=== PATIENT | female | born 1950 | race Caucasian/White ===

== ENCOUNTER 2016-05-07 21:19 | Observation (INO) | payer MEDICARE, OTHER ==
[~2016-05-07] VITALS: Ht 172.7 cm; Wt 92.7 kg
[2016-05-07] MEDS ORDERED: IPRATROPIUM 0.5MG/ALBUTEROL 2.5MG INH SOL UD 3ML (DUONEB)(J7620) As Ordered ONE ×2 (21:31→22:36)
[2016-05-07] MEDS ORDERED: NITROGLYCERIN 2% OINT 1 GM *U/D* PKT As Ordered ONE (21:50)
[2016-05-07] MEDS ORDERED: dexameTHASONE 4 MG/ML 1ML VIAL (J1100) As Ordered ONE (21:50)
[2016-05-07] MEDS ORDERED: FUROSEMIDE 20 MG/2 ML VIAL (J1940) As Ordered ONE (21:50)
[2016-05-07] MEDS ORDERED: FUROSEMIDE 40 MG/4 ML VIAL (J1940) As Ordered ONE (21:50)
[2016-05-07 22:01] LABS: BASO # 0.1 K/mm3 (0.0-0.2); BASO % 0.7 % (0.0-1.0); EOS # 1.6 K/mm3 (0.0-0.50); EOS % 14.3 % (0.0-3.0); LARGE UNSTAINED CELL # 0.2 K/mm3 (0.0-0.4); LARGE UNSTAINED CELL % 1.4 % (0.0-4.0); LYMPH # 2.7 K/mm3 (1.5-4.5); LYMPH % 21.8 % (24.0-44.0); MEAN CORPUSCULAR HEMOGLOBIN 29.6 pg (27.0-33.0); MEAN CORPUSCULAR HGB CONC 32.2 g/dl (32.0-36.5); MEAN CORPUSCULAR VOLUME 91.9 fl (80.0-96.0); MONO # 0.5 K/mm3 (0.0-0.8); MONO % 4.5 % (0.0-5.0); NEUTROPHILS # 6.6 K/mm3 (1.8-7.7); NEUTROPHILS % 57.3 % (36.0-66.0); PLATELET COUNT, AUTOMATED 252 k/mm3 (150-450); RED CELL DISTRIBUTION WIDTH 13.3 % (11.5-14.5); WHITE BLOOD COUNT 11.5 K/mm3 (4.0-10.0)
[2016-05-07 22:27] LABS: ANION GAP 9 MEQ/L (8-16); BLOOD UREA NITROGEN 13 MG/DL (7-18); CALCIUM LEVEL 9.3 MG/DL (8.8-10.2); CARBON DIOXIDE LEVEL 27 MEQ/L (21-32); CHLORIDE LEVEL 107 MEQ/L (98-107); CREATININE FOR GFR 0.95 MG/DL (0.55-1.02); GLOMERULAR FILTRATION RATE > 60.0 (>45); GLUCOSE, FASTING 116 MG/DL (80-110); SODIUM LEVEL 143 MEQ/L (136-145)
[2016-05-08] MEDS ORDERED: FLUO20CA8 PO (01:10)
[2016-05-08] MEDS ORDERED: NEXI40CA PO (01:10)
[2016-05-08] MEDS ORDERED: ATOR40TA PO (01:10)
[2016-05-08] MEDS ORDERED: FLUT1SPR2 (01:10)
[2016-05-08] MEDS ORDERED: TRAM50TA2 PO (01:10)
[2016-05-08] MEDS ORDERED: VALS1TAB49 PO (01:10)
[2016-05-08] MEDS ORDERED: TUSSSUS2 PO (01:10)
[2016-05-08] MEDS ORDERED: ACET50TAOT PO (01:10)
[2016-05-08] MEDS ORDERED: VITMTA PO (01:10)
[2016-05-08] MEDS ORDERED: REST0.05 OU (01:10)
[2016-05-08] MEDS ORDERED: ICAP1CAP PO (01:10)
[2016-05-08] MEDS ORDERED: ACETAMINOPHEN TAB 650MG DOSE (2X325MG) PO PRN (01:45)
[2016-05-08] MEDS ORDERED: ALBUTEROL SULFATE 2.5 MG/0.5 ML INH NEB SOLN NEB PRN (01:45)
[2016-05-08] MEDS ORDERED: ONDANSETRON 4MG/2ML VIAL (J2405) IV PRN (01:45)
[2016-05-08] MEDS ORDERED: FLUTICASONE PROP 0.05% NASAL SPRAY 16 GM (FLONASE) PRN (01:45)
[2016-05-08] MEDS ORDERED: LevoFLOXacin IV 750 MG in APPROPRIATE DILUENT 1 EA IV SCH (01:45)
[2016-05-08] MEDS ORDERED: methylPREDNISolone INJ 125 MG/2 ML VIAL (J2930) IV SCH ×2 (01:45→04:00)
[2016-05-08] MEDS ORDERED: traMADol 50 MG TAB PO PRN (01:45)
--- NOTE | 2016-05-08 02:26 | HPEPDOC ---
Medical History and Physical Date of Admission May 08, 2016 at 01:08 History and Physical PRIMARY CARE PROVIDER: Dr. Koroma CHIEF COMPLAINT: Shortness of breath HISTORY OF PRESENT ILLNESS: Patient is a 65-year-old female with past medical history significant for hypertension, dyslipidemia, GERD, anxiety and asthma who presents to emergency department with chief complaint of difficulty breathing. Patient says that she has been having intermittent symptoms for the past week but that now her symptoms are not getting better. She says that this evening she developed a cough and was having a hard time breathing. At times she said she felt like she was going to pass out. She mentions that she was diagnosed with pneumonia last February and was diagnosed with flu approximately a week ago. ALLERGIES: Tape PAST MEDICAL HISTORY: Hypertension, dyslipidemia, GERD, anxiety, asthma PAST SURGICAL HISTORY: Foot surgery 3, C-sections, hysterectomy, oophorectomy SOCIAL HISTORY: Patient drinks alcohol on weekends. She denies any tobacco or recreational drug use. 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 She lives at home with her CODE STATUS: Full code REVIEW OF SYSTEMS: Constitutional: Positive for fever and chills a couple days ago HEENT: Head: Positive for headaches and feelings like she is going to pass out which were new today. Eyes: denies blurry vision, double vision. Ears: denies hearing loss, tinnitus, ear pain. Nose: Positive for sinus pressure bilaterally , denies rhinorrhea or postnasal drip. Throat: Positive for cough which is productive for green/yellow sputum, denies hemoptysis Chest: Positive for feelings of heaviness in her chest Respiratory: Positive for shortness of breath and difficulty breathing Gastrointestinal: Positive for nausea, denies vomiting, diarrhea, constipation, abdominal pain, melena, hematochezia : denies dysuria, hematuria Musculoskeletal: denies muscle / joint stiffness, pain, swelling, lower extremity swelling Neurological: denies numbness, tingling, paresthesias Lymphatics: denies palpable lymph nodes or swollen glands Integumentary: denies any cuts, rashes, bruises Endocrine: denies polyuria, polydipsia. PHYSICAL EXAMINATION: Vitals: Temperature 96.3, pulse 120, respiratory rate 16, blood pressure 105/53 , pulse ox 93% on 4 L nasal cannula General: Patient awake, alert and oriented, verbal and able to answer questions appropriately. She does not appear to be in any acute distress HEENT: Head: normocephalic, atraumatic. Eyes: pupils equally reactive to light , conjunctiva are pink, sclera are nonicteric. Ears: tympanic membranes visible , light reflex present bilaterally without erythema. Throat: buccal mucosa is pink and moist with no lesions in the oropharynx Respiratory: Bilateral rhonchi to auscultation. No wheezes or rales Cardiovascular: tachycardic with regular rhythm, with no murmurs, rubs or gallops. Abdomen: soft, nontender, nondistended, no hepatosplenomegaly appreciated. Bowel sounds present. Extremities: 5/5 strength in upper and lower extremities bilaterally, no swelling in either lower extremity bilaterally Neurological: sensation intact and symmetrical in upper and lower extremities bilaterally Integumentary: skin free from rashes, lesions, abrasions Vascular: pulses palpable and symmetrical in upper and lower extremities bilaterally LABORATORY DATA: CBC: White blood cells 11.5, H&H 14.4/44.7, platelets 252 History: Sodium 143, potassium 4.0, chloride 107, carbon dioxide 27, BUN 13, creatinine 0.95, glucose 116, calcium 9.3 Lactic acid 2.0 Cardiac marker panel: CK-MB 2.2, CK-MB relative index 1.45, troponin <0.02 BNP 12.4 MICROBOIOLOGY: Blood cultures 2 pending ELECTROCARDIOGRAM: Sinus tachycardia at rate of 105 bpm RADIOLOGY: Chest x-ray as interpreted by myself: Negative for infiltrate or effusion ASSESSMENT: Patient is a 65-year-old female with history of asthma who presents with shortness of breath, increased oxygen requirement. Patient will be admitted for further evaluation, breathing treatments and IV antibiotics. PLAN: #1: Shortness of breath: Admit patient to [facility] under care of Dr. Gaol. Orders placed for DuoNeb 3 Bre's inhalation scheduled every 4 hours, albuterol sulfate 2.5 mg every 2 hours when necessary for shortness of breath or wheezing , Levaquin 750 mg IV every 24 hours, Solu-Medrol 60 mg IV every 6 hours. Order placed for respiratory panel. #2: Asthma / Asthmatic Bronchitis: See shortness of breath #3: Dyslipidemia: Order placed for home dose of Lipitor 40 mg by mouth daily at bedtime #4: Anxiety: Order placed for home dose of fluoxetine 20 mg by mouth daily #5: Allergic rhinitis: Order placed for home dose of Flonase 2 sprays in each nostril daily #6: GERD: Order placed for home dose of Protonix 40 mg by mouth daily #7: Hypertension: Order placed for home dose of valsartan 40 mg by mouth daily #8: DVT prophylaxis: Order placed for Lovenox 40 mg subcutaneously daily My preceptor for this patient encounter was physically present in the building during the encounter and was fully available. As needed, all aspects of the patient interview, examination, medical decision making process, and medical care plan development were reviewed and approved by the preceptor. Preceptor is aware and concurs with the plan as stated in the body of this note and will attest to such by his/her cosignature. Attending Note: I have independently examined this patient and all aspects of the exam and treatment decisions have been discussed with the resident. A member of the hospitalist staff will continue to follow this patient through discharge. Vital Signs Temperature 96.3, pulse 120, respiratory rate 16, blood pressure 105/53, pulse ox 93% on 4 L nasal cannula Home Medications Scheduled (Icaps Areds 2) 1 Cap Cap 1 CAP PO DAILY (Restasis) 0.05 % Emu 1 DROP OU BID Atorvastatin Calcium (Atorvastatin Calcium) 40 Mg Tab 40 MG PO QHS Chlorphenir/Hydrocod Polistir (Tussionex Pennkinetic Ext 10-8 mg/5Ml) 1 Preeti Preeti 5 ML PO BID Esomeprazole Magnesium Trihydr (Nexium) 40 Mg Cap 40 MG PO DAILY Fluoxetine Hcl (Fluoxetine) 20 Mg Cap 20 MG PO DAILY Levofloxacin Hemihydrate (Levofloxacin) 500 Mg Tab 500 MG PO DAILY Multivitamins *[facility] STOCKED* (Thera M Plus *[facility] STOCKED*) 1 Tab Tab 1 TAB PO DAILY Prednisone (Prednisone) 10 Mg Tab 10 MG PO DAILY as directed Valsartan (Valsartan) 40 Mg Tab 40 MG PO DAILY Scheduled PRN Acetaminophen (Acetaminophen) 500 Mg Tab 1,000 MG PO Q6H PRN PRN PAIN Albuterol Sulfate (Ventolin Hfa) 200 Puff/8 Gm Aers 2 PUFF INH Q4HP PRN PRN SHORTNESS OF BREATH Fluticasone Propionate (Fluticasone Propionate 0.05%) 120 Alpine/16 Gm Naspr 2 SPRAY NA DAILY PRN PRN NASAL CONGESTION PER NOSTRIL Tramadol HCl (Tramadol HCl) 50 Mg Tab 50 MG PO BID PRN PRN PAIN Allergies Coded Allergies: No Known Drug Allergy (Verified Allergy, Unknown, 05/16/14) FELIX DASILVA DO May 08, 2016 02:26 JAMIE REIS DO May 08, 2016 19:19
[2016-05-08] MEDS: IPRATROPIUM 0.5MG/ALBUTEROL 2.5MG INH SOL UD 3ML (DUONEB)(J7620) NEB SCH ×3 (04:00→11:21)
[2016-05-08] MEDS ORDERED: LevoFLOXacin IV 500 MG in APPROPRIATE DILUENT 1 EA IV SCH (04:00)
--- NOTE | 2016-05-08 05:13 | EDDOCDS ---
Physician Documentation [facility] Name: Amanda Rubin Age: 65 yrs Sex: Female : 1950 Arrival Date: 05/07/2016 Time: 21:19 Bed 18 Private MD: Any Koroma Disposition: 05/08 00:18 Critical Care:. cs11 Disposition: 05/08/16 00:17 Hospitalization ordered by Jimbo Pretty for Inpatient Admission. Preliminary diagnosis is Respiratory failure, unspecified with hypoxia. - Bed requested for M PED. - Status is Inpatient Admission. ld5 - Condition is Stable. - Problem is new. - Symptoms have improved. Historical: - Allergies: no known allergies; - Home Meds: 1. blood pressure med Unknown Unknown daily 2. "reflux medication". Unknown Unknown daily 3. Prozac 20 mg Oral cap 1 cap once daily 4. Eye Vitamin and Minerals 7,160-113-100 [id number] oral tab daily - PMHx: Hypertension; influenza; Pneumonia; Depression; GERD; - PSHx: none; - Social history: Smoking status: Patient states was never smoker of tobacco. No barriers to communication noted, The patient speaks fluent [place]. - Family history: No immediate family members are acutely ill. - : The pt / caregiver states he / she is not on anticoagulants. Home medication list is obtained from the patient. - Exposure Risk Screening:: None identified. Vital Signs: 05/07 21:21 BP 174 / 102; Pulse 113; Resp 16 S; Pulse Ox 87% on R/A; Weight 90.72 kg / 200 lbs (R); gr2 Height 5 ft. 8 in. (172.72 cm) (R); Pain 5/10; 21:30 BP 163 / 96 (auto/); mb9 21:30 Pulse Ox 84% on R/A; mb9 21:37 BP 155 / 90 (auto/); mb9 21:45 BP 130 / 78 (auto/); mb9 21:45 Pulse 108 MON; Pulse Ox 96% on 4 lpm NC; mb9 22:00 Pulse 115 MON; Pulse Ox 91% ; ld5 22:00 BP 133 / 80 (auto/); ld5 22:01 Temp 96.3; ld5 22:15 BP 140 / 79 (auto/); ld5 22:15 Pulse 120 MON; Pulse Ox 92% ; ld5 22:30 Pulse 119 MON; Pulse Ox 91% ; ld5 22:30 BP 136 / 76 (auto/); ld5 22:45 Pulse 118 MON; Pulse Ox 95% ; ld5 22:45 BP 124 / 80 (auto/); ld5 23:00 Pulse 116 MON; Pulse Ox 93% ; ld5 23:00 BP 129 / 61 (auto/); ld5 23:15 Pulse 111 MON; Pulse Ox 99% ; ld5 23:15 BP 115 / 57 (auto/); ld5 23:30 Pulse 120 MON; Pulse Ox 94% ; ld5 23:30 BP 116 / 59 (auto/); ld5 23:45 BP 115 / 57 (auto/); ld5 23:45 Pulse 121 MON; Pulse Ox 93% ; ld5 02 00:00 BP 105 / 53 (auto/); ld5 00:00 Pulse 120 MON; Pulse Ox 93% ; ld5 00:45 BP 103 / 63 (auto/); ld5 00:45 Pulse 112 MON; Pulse Ox 94% ; ld5 01:00 BP 97 / 55 (auto/); ld5 01:00 Pulse 109 MON; Pulse Ox 95% ; ld5 01:15 BP 110 / 56 (auto/); ld5 01:15 Pulse 109 MON; Pulse Ox 92% ; ld5 01:22 Temp 97.8; ld5 01:30 BP 115 / 60 (auto/); ld5 01:30 Pulse 108 MON; Pulse Ox 93% ; ld5 01:45 BP 108 / 55 (auto/); ld5 01:45 Pulse 105 MON; Pulse Ox 95% ; ld5 02:00 BP 92 / 57 (auto/); ld5 02:00 Pulse 106 MON; Pulse Ox 95% ; ld5 03:28 BP 114 / 59; Pulse 103; Resp 18; Temp 97.3; Pulse Ox 95% on 4 lpm NC; ld5 04:53 BP 112 / 56; Pulse 104; Resp 18; Temp 97.4; Pulse Ox 95% on 4 lpm NC; ld5 05/07 21:21 Body Mass Index 30.41 (90.72 kg, 172.72 cm) gr2 MDM: 05/07 21:34 Chest, 1 View Ordered. EDMS 21:34 ECG WITH READING ER PHYS+CARDIAG ordered. EDMS 21:38 IV Saline Lock ordered. cs11 21:38 -Blood Culture (Adults Only), peripheral from different site, or from device/port/PICC cs11 etc. if present ordered. 21:38 Oxygen at 4L/Min NC or Home dosage ordered. cs11 21:38 Albuterol-Ipratropium 1 neb Nebulizer every 20 minutes x3 ordered. cs11 21:38 Call Respiratory ordered. cs11 21:39 CBC with Diff Ordered. EDMS 21:39 MED Profile Ordered. EDMS 21:39 Lactic Acid ([place] tube on ice) Ordered. EDMS 21:39 BNP Ordered. EDMS 21:39 Cardiac Marker Panel Ordered. EDMS 21:39 -Blood Culture Ordered. EDMS 21:40 -Blood Culture (Adults Only), peripheral from different site, or from device/port/PICC ml3 etc. if present complete. 21:40 Call Respiratory complete. ml3 21:40 BLOOD CULTURES Ordered. EDMS 21:47 Nitro-Bid Ointment 2 % 1 inches Transdermal once ordered. cs11 21:47 Furosemide 60 mg IVP once ordered. cs11 21:47 Dexamethasone 12 mg IV at bolus once ordered. cs11 22:27 CBC with Diff Reviewed. cs11 22:27 BNP Reviewed. cs11 22:32 MED Profile Reviewed. cs11 22:32 Lactic Acid ([place] tube on ice) Reviewed. cs11 22:32 Cardiac Marker Panel Reviewed. cs11 22:33 Albuterol-Ipratropium 1 neb Nebulizer every 20 minutes x3 ordered. cs11 22:50 Financial registration complete. [facility] 23:04 [facility] Payment Agreement was scanned into [employer] and attached to record. [facility] 05/08 00:19 BED REQUEST+ADM ordered. EDMS 01:10 Admission / Observation Status ordered. EDMS 01:50 2 GRAM SODIUM DIET ordered. EDMS 01:50 RESPIRATORY PANEL Ordered. EDMS Administered Medications: 05/07 21:35 Drug: Albuterol-Ipratropium 1 neb [ipratropium-albuterol 0.5 mg-3 mg(2.5 mg base)/3 mL jc3 nebulization soln (1 neb)] Route: Nebulizer; 21:42 Drug: Albuterol-Ipratropium 1 neb [ipratropium-albuterol 0.5 mg-3 mg(2.5 mg base)/3 mL jc3 nebulization soln (1 neb)] Route: Nebulizer; 21:52 Drug: Albuterol-Ipratropium 1 neb [ipratropium-albuterol 0.5 mg-3 mg(2.5 mg base)/3 mL jc3 nebulization soln (1 neb)] Route: Nebulizer; 22:00 Drug: Nitro-Bid 1 inches [Nitro-Bid 2 % transdermal ointment (1 inches)] Route: ld5 Transdermal; Site: anterior chest wall; 22:00 Drug: Furosemide 60 mg [furosemide 10 mg/mL injection solution (6 mL)] Route: IVP; ld5 Site: right antecubital; 22:00 Drug: Dexamethasone 12 mg [dexamethasone 4 mg/mL injection solution] Route: IV; Rate: ld5 bolus; Site: right antecubital; 22:55 Drug: Albuterol-Ipratropium 1 neb [ipratropium-albuterol 0.5 mg-3 mg(2.5 mg base)/3 mL jc3 nebulization soln (1 neb)] Route: Nebulizer; 23:04 Drug: Albuterol-Ipratropium 1 neb [ipratropium-albuterol 0.5 mg-3 mg(2.5 mg base)/3 mL jc3 nebulization soln (1 neb)] Route: Nebulizer; Critical Care Time: 05/08 00:18 Critical care time: Bedside Care: 120 minutes. Total time: 120 minutes cs11 Signatures: Dispatcher [employer] EDChasidy Baig RN RN jan Lopresti, Mary-Elizabeth, [employer] Interpreter Unit ml3 Any Caruso RN RN ld5 Schiff, Craig, DO DO cs11 Kristian Howell RN RN Sherry Stapleton, Reg Reg [id number] Destin Eli 3 The chart was reviewed and I authenticate all verbal orders and agree with the evaluation and treatment provided.Attachments: 05/07 23:04 [facility] Payment Agreement [email or web address]
--- NOTE | 2016-05-08 05:13 | EDDOCDS ---
Nurse's Notes [facility] Name: Amanda Rubin Age: 65 yrs Sex: Female : 1950 Arrival Date: 05/07/2016 Time: 21:19 Bed 18 Private MD: Any Koroma Diagnosis: Respiratory failure, unspecified with hypoxia Presentation: 05/07 21:31 Presenting complaint: Patient states: "I was diagnosed with the flu about a weak ago mb9 and I had pneumonia in February. About an hour ago I started having some shortness of breath". Adult Sepsis Screening: The patient does not have new or worsening altered mentation. Patient's respiratory rate is less than 22. Systolic blood pressure is greater than 100. Patient has a qSOFA score of 0- Negative Sepsis Screen. Suicide/Homicide risk assessment- the patient denies having any suicidal and/or homicidal ideations and does not present with any other emotional, behavioral or mental health complaints. Status: Patient is not a sales and service technician or dependent. Transition of care: patient was not received from another setting of care. 21:31 Acuity: LAI Level 2 mb9 21:31 Method Of Arrival: Walkin/Carried/Asstd mb9 Triage Assessment: 21:31 General: Appears distressed, Behavior is cooperative. Pain: Denies pain. Pt Declines mb9 HIV testing. The patient is triaged at the bedside. See Assessment in Nurses Notes section of ED record. Neurological: Level of Consciousness is awake, alert, Oriented to person, place, time. Respiratory: Onset: The symptoms/episode began/occurred just prior to arrival, Airway is patent Respiratory effort is even, labored, Respiratory pattern is regular, symmetrical, Breath sounds are coarse bilaterally. Breath sounds are diminished bilaterally. Breath sounds with wheezes bilaterally. Historical: - Allergies: no known allergies; - Home Meds: 1. blood pressure med Unknown Unknown daily 2. "reflux medication". Unknown Unknown daily 3. Prozac 20 mg Oral cap 1 cap once daily 4. Eye Vitamin and Minerals 7,160-113-100 [id number] oral tab daily - PMHx: Hypertension; influenza; Pneumonia; Depression; GERD; - PSHx: none; - Social history: Smoking status: Patient states was never smoker of tobacco. No barriers to communication noted, The patient speaks fluent Ethiopian. - Family history: No immediate family members are acutely ill. - : The pt / caregiver states he / she is not on anticoagulants. Home medication list is obtained from the patient. - Exposure Risk Screening:: None identified. Screenin/15 03:09 Screening information is obtained from the patient. Fall risk: No risks identified. ld5 Assistance ADL's: requires no assistance with activities of daily living. Abuse/DV Screen: The patient / caregiver reports he/she is: not in a situation that causes fear, pain or injury. Nutritional screening: No deficits noted. Advance Directives: There is no Power of Concrete Hopper Operator. home support is adequate. Assessment: 05/07 22:00 General: Appears uncomfortable, Behavior is cooperative. Pain: Location: head. ld5 Neurological: Level of Consciousness is awake, obeys commands. Cardiovascular: Rhythm is sinus tachycardia Chest pain is denied. Respiratory: Airway is patent Respiratory effort is even, labored, Breath sounds are coarse bilaterally. Breath sounds with wheezes bilaterally. Reports shortness of breath at rest on exertion cough that is productive. GI: Abdomen is non- distended Bowel sounds present X 4 quads. Abd is soft and non tender X 4 quads. Denies nausea, vomiting. Derm: Skin is intact, Skin is dry, Skin is pale. Musculoskeletal: Range of motion intact in all extremities. 22:20 General: Pt sitting up in bed. SO at bedside. No significant change in symptoms at this ld5 time. Will continue to monitor. 22:49 General: Pt up to commode. Tolerated well. Reports decrease in respiratory symptoms ld5 since arrival. Will continue to monitor. 23:30 General: Appears in no apparent distress, Pt resting in bed with eyes dimmed. No ld5 apparent distress. Reports decrease in symptoms since ER arrival. Will continue to monitor. 05/08 00:10 General: Appears in no apparent distress, Behavior is cooperative. Neurological: Level ld5 of Consciousness is awake, obeys commands. Respiratory: Airway is patent Respiratory effort is even, unlabored. 01:00 General: Hospitalist in to assess pt. ld5 01:45 General: Blankets provided and lights dimmed for comfort. Pt aware of plan for ld5 admission. Denies any needs at this time. Call bentley within reach. Will continue to monitor. 02:39 General: Appears in no apparent distress, Pt up to commode. Tolerated well. Returned to ld5 bed and call bentley within reach. Will continue to monitor. 03:29 General: Pt resting quietly in bed. Tamara claribel provided per request. Will continue to ld5 monitor. 04:35 General: Pt updated on room status. Denies any needs at this time. Will continue to ld5 monitor. 05:07 General: Appears in no apparent distress. Respiratory: Airway is patent Respiratory ld5 effort is even, unlabored. Vital Signs: 05/07 21:21 BP 174 / 102; Pulse 113; Resp 16 S; Pulse Ox 87% on R/A; Weight 90.72 kg (R); Height 5 gr2 ft. 8 in. (172.72 cm) (R); Pain 5/10; 21:30 BP 163 / 96 (auto/); mb9 21:30 Pulse Ox 84% on R/A; mb9 21:37 BP 155 / 90 (auto/); mb9 21:45 BP 130 / 78 (auto/); mb9 21:45 Pulse 108 MON; Pulse Ox 96% on 4 lpm NC; mb9 22:00 Pulse 115 MON; Pulse Ox 91% ; ld5 22:00 BP 133 / 80 (auto/); ld5 22:01 Temp 96.3; ld5 22:15 BP 140 / 79 (auto/); ld5 22:15 Pulse 120 MON; Pulse Ox 92% ; ld5 22:30 Pulse 119 MON; Pulse Ox 91% ; ld5 22:30 BP 136 / 76 (auto/); ld5 22:45 Pulse 118 MON; Pulse Ox 95% ; ld5 22:45 BP 124 / 80 (auto/); ld5 23:00 Pulse 116 MON; Pulse Ox 93% ; ld5 23:00 BP 129 / 61 (auto/); ld5 23:15 Pulse 111 MON; Pulse Ox 99% ; ld5 23:15 BP 115 / 57 (auto/); ld5 23:30 Pulse 120 MON; Pulse Ox 94% ; ld5 23:30 BP 116 / 59 (auto/); ld5 23:45 BP 115 / 57 (auto/); ld5 23:45 Pulse 121 MON; Pulse Ox 93% ; ld5 05/08 00:00 BP 105 / 53 (auto/); ld5 00:00 Pulse 120 MON; Pulse Ox 93% ; ld5 00:45 BP 103 / 63 (auto/); ld5 00:45 Pulse 112 MON; Pulse Ox 94% ; ld5 01:00 BP 97 / 55 (auto/); ld5 01:00 Pulse 109 MON; Pulse Ox 95% ; ld5 01:15 BP 110 / 56 (auto/); ld5 01:15 Pulse 109 MON; Pulse Ox 92% ; ld5 01:22 Temp 97.8; ld5 01:30 BP 115 / 60 (auto/); ld5 01:30 Pulse 108 MON; Pulse Ox 93% ; ld5 01:45 BP 108 / 55 (auto/); ld5 01:45 Pulse 105 MON; Pulse Ox 95% ; ld5 02:00 BP 92 / 57 (auto/); ld5 02:00 Pulse 106 MON; Pulse Ox 95% ; ld5 03:28 BP 114 / 59; Pulse 103; Resp 18; Temp 97.3; Pulse Ox 95% on 4 lpm NC; ld5 04:53 BP 112 / 56; Pulse 104; Resp 18; Temp 97.4; Pulse Ox 95% on 4 lpm NC; ld5 05/07 21:21 Body Mass Index 30.41 (90.72 kg, 172.72 cm) gr2 Vitals: 05/07 21:21 Log In Time: May 07, 2016 at 21:21. RN notified that patient meets Red Flag gr2 criteria. ED Course: 21:20 Patient visited by Neftali Ram. gr2 21:20 Any Koroma DO is Private Physician. gr2 21:20 Patient moved to Waiting gr2 21:23 Patient visited by Neftali Ram. gr2 21:28 Patient moved to 2 ml3 21:32 Rito Pierre DO is Attending Physician. cs11 21:32 Patient visited by Rito Pierre DO. cs11 21:32 Triage Initiated mb9 21:45 EKG done. (by ED staff). Reviewed by Rito Pierre DO. jmv 21:46 Pt greeted and oriented to ED. Patient advised of names of staff involved in care, jmv location of call bentley, wait times and NPO status. Accompanied by Significant Other, Patient has correct armband on for positive identification. Placed in gown. Bed in low position. Call light in reach. Side rails up X2. monitor and storage bin tender on. Pulse ox on. NIBP on. 21:47 Patient visited by Zia Hines PCA. jmv 21:51 Inserted saline lock: 18 gauge in right antecubital area and blood collected. The mb9 patient tolerated the procedure well. 22:01 Patient visited by Any Caruso RN. ld5 22:42 Patient visited by Umang Mora PCA. kb5 22:50 Patient visited by Any Caruso RN. ld5 23:04 [facility] Payment Agreement was scanned into [employer] and attached to record. ks16 23:20 Patient visited by Any Caruso RN. ld5 05/08 00:11 Patient visited by Any Caruso RN. ld5 00:16 Jimbo Pretty DO is Hospitalizing Provider. cs11 01:10 Patient visited by Umang Mora PCA. kb5 01:22 Patient visited by Any Caruso RN. ld5 01:46 Patient visited by Any Caruso RN. ld5 02:14 Patient moved to 18 ld5 02:53 Patient visited by Any Caruso RN. ld5 03:09 The patient / caregiver is instructed regarding the plan of care and ED course. ld5 03:09 No procedures done that require assistance. ld5 03:10 Patient visited by Any Caruso RN. ld5 03:31 Patient visited by Any Caruso RN. ld5 04:36 Patient visited by Any Caruso RN. ld5 04:54 Patient visited by Any Caruso RN. ld5 05:08 Patient visited by Any Caruso RN. ld5 Administered Medications: 05/07 21:35 Drug: Albuterol-Ipratropium 1 neb [ipratropium-albuterol 0.5 mg-3 mg(2.5 mg base)/3 mL jc3 nebulization soln (1 neb)] Route: Nebulizer; 21:42 Drug: Albuterol-Ipratropium 1 neb [ipratropium-albuterol 0.5 mg-3 mg(2.5 mg base)/3 mL jc3 nebulization soln (1 neb)] Route: Nebulizer; 21:52 Drug: Albuterol-Ipratropium 1 neb [ipratropium-albuterol 0.5 mg-3 mg(2.5 mg base)/3 mL jc3 nebulization soln (1 neb)] Route: Nebulizer; 22:00 Drug: Nitro-Bid 1 inches [Nitro-Bid 2 % transdermal ointment (1 inches)] Route: ld5 Transdermal; Site: anterior chest wall; 22:00 Drug: Furosemide 60 mg [furosemide 10 mg/mL injection solution (6 mL)] Route: IVP; ld5 Site: right antecubital; 22:00 Drug: Dexamethasone 12 mg [dexamethasone 4 mg/mL injection solution] Route: IV; Rate: ld5 bolus; Site: right antecubital; 22:55 Drug: Albuterol-Ipratropium 1 neb [ipratropium-albuterol 0.5 mg-3 mg(2.5 mg base)/3 mL jc3 nebulization soln (1 neb)] Route: Nebulizer; 23:04 Drug: Albuterol-Ipratropium 1 neb [ipratropium-albuterol 0.5 mg-3 mg(2.5 mg base)/3 mL jc3 nebulization soln (1 neb)] Route: Nebulizer; Output: 22:49 Urine: 550.00ml (Voided); Total: 550.00ml. ld5 05/08 02:40 Urine: 800.00ml (Voided); Total: 1350.00ml. ld5 RT: 05/07 21:37 Initial Med Neb Given as ordered. O2 via nasal cannula \\T\\ 2L/min. Respiratory: Breath jc3 sounds are coarse bilaterally. Breath sounds with crackles bilaterally. Breath sounds with wheezes bilaterally. at expiration. 21:38 O2 via Patient SpO2 on 2L - 88%. jc3 21:42 Subsequent Med Neb Given as ordered. jc3 21:52 Subsequent Med Neb Given as ordered. Respiratory: Breath sounds are coarse Breath jc3 sounds with crackles bilaterally. Breath sounds with wheezes bilaterally. at expiration. 23:04 Subsequent Med Neb Given as ordered. Respiratory: Breath sounds are coarse bilaterally. jc3 Breath sounds with wheezes bilaterally. at expiration. Order Results: Lab Order: CBC with Diff; SPEC'M 05/07/16 21:42 Test: WHITE BLOOD COUNT; Value: 11.5; Range: 4.0-10.0; Abnormal: Above high normal; Units: K/mm3; Status: F Test: RED BLOOD COUNT; Value: 4.87; Range: 4.00-5.40; Units: M/mm3; Status: F Test: HEMOGLOBIN; Value: 14.4; Range: 12.0-16.0; Units: g/dl; Status: F Test: HEMATOCRIT; Value: 44.7; Range: 36.0-47.0; Units: %; Status: F Test: MEAN CORPUSCULAR VOLUME; Value: 91.9; Range: 80.0-96.0; Units: fl; Status: F Test: MEAN CORPUSCULAR HEMOGLOBIN; Value: 29.6; Range: 27.0-33.0; Units: pg; Status: F Test: MEAN CORPUSCULAR HGB CONC; Value: 32.2; Range: 32.0-36.5; Units: g/dl; Status: F Test: RED CELL DISTRIBUTION WIDTH; Value: 13.3; Range: 11.5-14.5; Units: %; Status: F Test: PLATELET COUNT, AUTOMATED; Value: 252; Range: 150-450; Units: k/mm3; Status: F Test: NEUTROPHILS %; Value: 57.3; Range: 36.0-66.0; Units: %; Status: F Test: LYMPH %; Value: 21.8; Range: 24.0-44.0; Abnormal: Below low normal; Units: %; Status: F Test: MONO %; Value: 4.5; Range: 0.0-5.0; Units: %; Status: F Test: EOS %; Value: 14.3; Range: 0.0-3.0; Abnormal: Above high normal; Units: %; Status: F Test: BASO %; Value: 0.7; Range: 0.0-1.0; Units: %; Status: F Test: LARGE UNSTAINED CELL %; Value: 1.4; Range: 0.0-4.0; Units: %; Status: F Test: NEUTROPHILS #; Value: 6.6; Range: 1.8-7.7; Units: K/mm3; Status: F Test: LYMPH #; Value: 2.7; Range: 1.5-4.5; Units: K/mm3; Status: F Test: MONO #; Value: 0.5; Range: 0.0-0.8; Units: K/mm3; Status: F Test: EOS #; Value: 1.6; Range: 0.0-0.50; Abnormal: Above high normal; Units: K/mm3; Status: F Test: BASO #; Value: 0.1; Range: 0.0-0.2; Units: K/mm3; Status: F Test: LARGE UNSTAINED CELL #; Value: 0.2; Range: 0.0-0.4; Units: K/mm3; Status: F Lab Order: MED Profile; SPEC'M 05/07/16 21:41 Test: GLUCOSE, FASTING; Value: 116; Range: 80-110; Abnormal: Above high normal; Units: MG/DL; Status: F Test: BLOOD UREA NITROGEN; Value: 13; Range: 7-18; Units: MG/DL; Status: F Test: CREATININE FOR GFR; Value: 0.95; Range: 0.55-1.02; Units: MG/DL; Status: F Test: GLOMERULAR FILTRATION RATE; Value: > 60.0; Range: >45; Status: F Test: SODIUM LEVEL; Value: 143; Range: 136-145; Units: MEQ/L; Status: F Test: POTASSIUM SERUM; Value: 4.0; Range: 3.5-5.1; Units: MEQ/L; Status: F Test: CHLORIDE LEVEL; Value: 107; Range: 98-107; Units: MEQ/L; Status: F Test: CARBON DIOXIDE LEVEL; Value: 27; Range: 21-32; Units: MEQ/L; Status: F Test: ANION GAP; Value: 9; Range: 8-16; Units: MEQ/L; Status: F Test: CALCIUM LEVEL; Value: 9.3; Range: 8.8-10.2; Units: MG/DL; Status: F Test Note: ; Units are mL/min/1.73 m2 Chronic Kidney Disease Staging per NKF: Stage I & II GFR >=60 Normal to Mildly Decreased Stage III GFR 30-59 Moderately Decreased Stage IV GFR 15-29 Severely Decreased Stage V GFR <15 Very Little GFR Left ESRD GFR <15 on INSPECTOR STRUCTURAL BONDING Lab Order: Lactic Acid (Christianson tube on ice); SPEC'M 05/07/16 21:42 Test: LACTIC ACID SEPSIS PROTOCOL; Value: 2.0; Range: 0.4-2.0; Units: MMOL/L; Status: F Lab Order: BNP; SPEC'M 05/07/16 21:42 Test: BRAIN NATRIURETIC PEPTIDE; Value: 12.4; Range: <100; Units: PG/ML; Status: F Lab Order: Cardiac Marker Panel; SPEC'M 05/07/16 21:41 Test: CPK CREATINE PHOSPHOKINASE; Value: 151; Range: 26-192; Units: U/L; Status: F Test: CK-MB VALUE MASS; Value: 2.2; Range: 0.0-3.6; Units: NG/ML; Status: F Test: MB/CK RELATIVE INDEX; Value: 1.45; Range: < OR =4; Status: F Test: TROPONIN I; Value: < 0.02; Range: < 0.10; Units: NG/ML; Status: F Test Note: ; DIAGNOSIS CRITERIA MMB ng/ml Relative Index (RI) NON-AMI < or = 5 N/A [place] ZONE > 5 < or = 4 AMI > 5 > 4 Outcome: 05/08 00:17 Decision to Hospitalize by Provider. cs11 03:09 No special radiology studies were completed. ld5 05:08 Discharge Assessment: Patient awake, alert and oriented x 3. No cognitive and/or ld5 functional deficits noted. Patient verbalized understanding of disposition instructions. patient administered narcotics - no. The following High Risk Discharge criteria are identified: None. Admitted to Pediatrics accompanied by tech, via stretcher, with oxygen, with chart. Condition: stable. Property :Personal belongings accompany Pt. 05:13 Patient left the ED. ld5 Signatures: Hema Cortez, Christmas Tree Grader Unit ml3 Umang Mora, GRILL PREP COOK GRILL PREP COOK kb5 Destin Eli jc3 Any Caruso,ALFREDO RN ld5 Rito Pierre DO DO cs11 Neftali Ram gr2 Kristian Howell RN RN mb9 Sherry George, Reg Reg ks16 Zia Hines, GRILL PREP COOK GRILL PREP COOK jmv MTDD
[2016-05-08 05:30] VITALS: BP 125/62
--- NOTE | 2016-05-08 07:48 | REP ---
Clinical: Shortness of breath . Comparison: 02/20/2016 . Findings: The mediastinum and cardiac silhouette are stable and within normal limits for portable technique. The lung beltrán are clear without acute consolidation, effusion, or pneumothorax. Skeletal structures are intact. Impression: Normal portable chest x-ray Signed by Serafin Carpenter MD 05/08/2016 07:40 A
[2016-05-08 08:00] VITALS: BP 125/60
--- NOTE | 2016-05-08 08:57 | ECGEPIP ---
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
[2016-05-08] MEDS ORDERED: PANTOPRAZOLE 40MG TAB (PROTONIX) PO SCH (09:00)
[2016-05-08] MEDS ORDERED: FLUoxetine 20 MG CAP PO SCH (09:00)
[2016-05-08] MEDS ORDERED: VALSARTAN 40MG TABLET (DIOVAN) PO SCH (09:00)
[2016-05-08] MEDS ORDERED: MULTIVITAMINS/MINERALS THERAP 1 TAB PO SCH (09:00)
[2016-05-08] MEDS ORDERED: ENOXAPARIN 40 MG/0.4 ML SYRINGE (J1650) SC SCH (09:00)
[2016-05-08] MEDS ORDERED: LEVO500T32 PO (10:30)
[2016-05-08] MEDS ORDERED: PRED10TA PO (10:33)
[2016-05-08] MEDS ORDERED: ALBU17IN INH ×2 (10:33→10:35)
[2016-05-08 10:46] VITALS: BP 125/60
[2016-05-08] MEDS ORDERED: ATORVASTATIN 20 MG TAB PO SCH (21:00)
--- NOTE | 2016-05-09 10:16 | DSES ---
DATE OF ADMISSION: 05/08/2016 DATE OF DISCHARGE: 05/08/2016 DISCHARGE DIAGNOSIS: Asthma exacerbation. SECONDARY DIAGNOSES: Reactive airway disease. Dyspnea. Dyslipidemia. Anxiety. Allergic rhinitis. Gastroesophageal reflux disease. Hypertension. HOSPITAL COURSE: Patient is a 65-year-old female who has been struggling with chronic cough with primary care provider for several months. She tells me that she was in her usual state of health yesterday, after feeding her birds, being exposed to the bird seed, dust in the air, she began having a coughing fit and was short of breath without resolution which prompted her to present to the emergency room where she was found to be quite hypoxic. She was admitted to medical/surgical floor. Initially there was concern for bacterial pneumonia versus viral infection. The patient was started on IV Solu-Medrol, levofloxacin and nebulizer treatments. The patient did have a quick and impressive response to this. She was initially requiring 4 liters of oxygen, however, this morning, I am able to up and ambulate her on room air greater than 100 feet with saturations never dropping below 91%. SUBJECTIVE: This morning, the patient tells me she feels completely back to normal. She has no complaints, no chest pain, shortness of breath, fever, chills, nausea, vomiting, diarrhea. OBJECTIVE: Vital signs: Temperature 96.5, pulse 103, respiratory rate 18, blood pressure 125/60, oxygen saturation 94% on room air. General: She is a pleasant, elderly, female sitting up in bed. She does not appear to be in any acute distress whatsoever. HEENT: Cranial nerves II-XII grossly intact. She has moist mucous membranes. No use of accessory muscles. She speaks in complete sentences without difficulty. Cardiovascular exam: S1, S2. She is not tachy while at rest. Respiratory exam: Actually quite clear without any appreciable wheeze. Abdominal exam: Benign. Extremities: No clubbing, cyanosis or edema. LABORATORY STUDIES: WBC 11.5, hemoglobin 14.4, platelet count 252. Chemistry panel: Sodium 143, potassium 4.0, chloride 107, bicarbonate 27, BUN 13, creatinine 0.9. Respiratory panel is negative. Blood cultures are pending. The patient had a chest x-ray that was a normal portable study. ASSESSMENT AND PLAN: This is a 65-year-old female with asthma exacerbation versus reactive airway disease. PROBLEMS: 1. Asthma exacerbation. I feel the patient likely had some reactive disease and acute bronchospasms secondary to exposure to the bird seed. I have informed her to avoid this. Given that she is back to her baseline and ambulating without any oxygen requirements, I feel she is medically stable for discharge home. The patient would like to go home and feels back to normal. I will transition her from IV Solu-Medrol to prednisone taper. I was suspicious for bacterial pneumonia but will continue the antibiotics started and have her complete her course since her respiratory PCR panel was negative for any viral infection. She will have levofloxacin 500 mg by mouth daily for 4 additional days. She is to followup with her primary care physician within the next week and her automotive accessory installer Dr. Vergara as scheduled. 2. Dyslipidemia. She is continued on her home statin. 3. Anxiety. She will continue on fluoxetine. 4. Allergic rhinitis. She will continue on Flonase. 5. Gastroesophageal reflux disease. She is on Protonix 40 daily. She carries a diagnosis of esophageal stenosis requiring dilation every [address] Kendall. 6. Hypertension. She is on Losartan. 7. Deep venous thrombosis (DVT) prophylaxis. She has been on Lovenox. DISPOSITION: Patient is being discharged home to the care of her family. Her clinical status improved to her baseline. She is to followup with her primary care provider within 7 days and pulmonology as scheduled. Activity as tolerated. Avoid the bird seed. Her diet is as prior to admission. She is to return to the ER if her symptoms worsen. MEDICATIONS AT THE TIME OF DISCHARGE: - Ventolin HFA two puffs inhaled every 4 hours as needed for shortness of breath - levofloxacin 500 mg daily for 6 days - prednisone 40 mg for 4 days, 30 mg for 4 days, 20 mg for 4 days, 10 mg for 4 days, then stop - Tylenol 1 gram every 6 hours as needed for pain - atorvastatin 40 mg daily at bedtime - Tussionex 5 mL twice a day - Nexium 40 mg daily - fluoxetine 20 mg daily - fluticasone two sprays nasally as needed for nasal congestion - ICaps Areds one capsule daily as per the patient - multivitamin one tablet daily - Restasis 0.5% drops each eye twice a day - tramadol 50 mg twice a day as needed for pain - Valsartan 40 mg daily Greater than 30 minutes spent organizing disposition.
--- NOTE | 2016-05-10 06:14 | EDDOCDS ---
Physician Documentation [facility] Name: Amanda Rubin Age: 65 yrs Sex: Female : 1950 Arrival Date: 05/07/2016 Time: 21:19 Bed 18 Private MD: Any Koroma Disposition: 05/08 00:18 Critical Care:. cs11 Disposition: 05/08/16 00:17 Hospitalization ordered by Jimbo Pretty for Inpatient Admission. Preliminary diagnosis is Respiratory failure, unspecified with hypoxia. - Bed requested for M PED. - Status is Inpatient Admission. ld5 - Condition is Stable. - Problem is new. - Symptoms have improved. Historical: - Allergies: no known allergies; - Home Meds: 1. blood pressure med Unknown Unknown daily 2. "reflux medication". Unknown Unknown daily 3. Prozac 20 mg Oral cap 1 cap once daily 4. Eye Vitamin and Minerals 7,160-113-100 [id number] oral tab daily - PMHx: Hypertension; influenza; Pneumonia; Depression; GERD; - PSHx: none; - Social history: Smoking status: Patient states was never smoker of tobacco. No barriers to communication noted, The patient speaks fluent Georgian. - Family history: No immediate family members are acutely ill. - : The pt / caregiver states he / she is not on anticoagulants. Home medication list is obtained from the patient. - Exposure Risk Screening:: None identified. Vital Signs: 05/07 21:21 BP 174 / 102; Pulse 113; Resp 16 S; Pulse Ox 87% on R/A; Weight 90.72 kg / 200 lbs (R); gr2 Height 5 ft. 8 in. (172.72 cm) (R); Pain 5/10; 21:30 BP 163 / 96 (auto/); mb9 21:30 Pulse Ox 84% on R/A; mb9 21:37 BP 155 / 90 (auto/); mb9 21:45 BP 130 / 78 (auto/); mb9 21:45 Pulse 108 MON; Pulse Ox 96% on 4 lpm NC; mb9 22:00 Pulse 115 MON; Pulse Ox 91% ; ld5 22:00 BP 133 / 80 (auto/); ld5 22:01 Temp 96.3; ld5 22:15 BP 140 / 79 (auto/); ld5 22:15 Pulse 120 MON; Pulse Ox 92% ; ld5 22:30 Pulse 119 MON; Pulse Ox 91% ; ld5 22:30 BP 136 / 76 (auto/); ld5 22:45 Pulse 118 MON; Pulse Ox 95% ; ld5 22:45 BP 124 / 80 (auto/); ld5 23:00 Pulse 116 MON; Pulse Ox 93% ; ld5 23:00 BP 129 / 61 (auto/); ld5 23:15 Pulse 111 MON; Pulse Ox 99% ; ld5 23:15 BP 115 / 57 (auto/); ld5 23:30 Pulse 120 MON; Pulse Ox 94% ; ld5 23:30 BP 116 / 59 (auto/); ld5 23:45 BP 115 / 57 (auto/); ld5 23:45 Pulse 121 MON; Pulse Ox 93% ; ld5 02 00:00 BP 105 / 53 (auto/); ld5 00:00 Pulse 120 MON; Pulse Ox 93% ; ld5 00:45 BP 103 / 63 (auto/); ld5 00:45 Pulse 112 MON; Pulse Ox 94% ; ld5 01:00 BP 97 / 55 (auto/); ld5 01:00 Pulse 109 MON; Pulse Ox 95% ; ld5 01:15 BP 110 / 56 (auto/); ld5 01:15 Pulse 109 MON; Pulse Ox 92% ; ld5 01:22 Temp 97.8; ld5 01:30 BP 115 / 60 (auto/); ld5 01:30 Pulse 108 MON; Pulse Ox 93% ; ld5 01:45 BP 108 / 55 (auto/); ld5 01:45 Pulse 105 MON; Pulse Ox 95% ; ld5 02:00 BP 92 / 57 (auto/); ld5 02:00 Pulse 106 MON; Pulse Ox 95% ; ld5 03:28 BP 114 / 59; Pulse 103; Resp 18; Temp 97.3; Pulse Ox 95% on 4 lpm NC; ld5 04:53 BP 112 / 56; Pulse 104; Resp 18; Temp 97.4; Pulse Ox 95% on 4 lpm NC; ld5 05/07 21:21 Body Mass Index 30.41 (90.72 kg, 172.72 cm) gr2 MDM: 05/07 21:34 Chest, 1 View Ordered. EDMS 21:34 ECG WITH READING ER PHYS+CARDIAG ordered. EDMS 21:38 IV Saline Lock ordered. cs11 21:38 -Blood Culture (Adults Only), peripheral from different site, or from device/port/PICC cs11 etc. if present ordered. 21:38 Oxygen at 4L/Min NC or Home dosage ordered. cs11 21:38 Albuterol-Ipratropium 1 neb Nebulizer every 20 minutes x3 ordered. cs11 21:38 Call Respiratory ordered. cs11 21:39 CBC with Diff Ordered. EDMS 21:39 MED Profile Ordered. EDMS 21:39 Lactic Acid (Christianson tube on ice) Ordered. EDMS 21:39 BNP Ordered. EDMS 21:39 Cardiac Marker Panel Ordered. EDMS 21:39 -Blood Culture Ordered. EDMS 21:40 -Blood Culture (Adults Only), peripheral from different site, or from device/port/PICC ml3 etc. if present complete. 21:40 Call Respiratory complete. ml3 21:40 BLOOD CULTURES Ordered. EDMS 21:47 Nitro-Bid Ointment 2 % 1 inches Transdermal once ordered. cs11 21:47 Furosemide 60 mg IVP once ordered. cs11 21:47 Dexamethasone 12 mg IV at bolus once ordered. cs11 22:27 CBC with Diff Reviewed. cs11 22:27 BNP Reviewed. cs11 22:32 MED Profile Reviewed. cs11 22:32 Lactic Acid (Christianson tube on ice) Reviewed. cs11 22:32 Cardiac Marker Panel Reviewed. cs11 22:33 Albuterol-Ipratropium 1 neb Nebulizer every 20 minutes x3 ordered. cs11 22:50 Financial registration complete. ks16 23:04 [facility] Payment Agreement was scanned into [employer] and attached to record. ks16 05/08 00:19 BED REQUEST+ADM ordered. EDMS 01:10 Admission / Observation Status ordered. EDMS 01:50 2 GRAM SODIUM DIET ordered. EDMS 01:50 RESPIRATORY PANEL Ordered. EDMS 09:47 T-Sheet-- Draft Copy was scanned into [employer] and attached to record. klr 14:13 ECG/EKG was scanned into [employer] and attached to record. gb Administered Medications: 05/07 21:35 Drug: Albuterol-Ipratropium 1 neb [ipratropium-albuterol 0.5 mg-3 mg(2.5 mg base)/3 mL jc3 nebulization soln (1 neb)] Route: Nebulizer; 21:42 Drug: Albuterol-Ipratropium 1 neb [ipratropium-albuterol 0.5 mg-3 mg(2.5 mg base)/3 mL jc3 nebulization soln (1 neb)] Route: Nebulizer; 21:52 Drug: Albuterol-Ipratropium 1 neb [ipratropium-albuterol 0.5 mg-3 mg(2.5 mg base)/3 mL jc3 nebulization soln (1 neb)] Route: Nebulizer; 22:00 Drug: Nitro-Bid 1 inches [Nitro-Bid 2 % transdermal ointment (1 inches)] Route: ld5 Transdermal; Site: anterior chest wall; 22:00 Drug: Furosemide 60 mg [furosemide 10 mg/mL injection solution (6 mL)] Route: IVP; ld5 Site: right antecubital; 22:00 Drug: Dexamethasone 12 mg [dexamethasone 4 mg/mL injection solution] Route: IV; Rate: ld5 bolus; Site: right antecubital; 22:55 Drug: Albuterol-Ipratropium 1 neb [ipratropium-albuterol 0.5 mg-3 mg(2.5 mg base)/3 mL jc3 nebulization soln (1 neb)] Route: Nebulizer; 23:04 Drug: Albuterol-Ipratropium 1 neb [ipratropium-albuterol 0.5 mg-3 mg(2.5 mg base)/3 mL jc3 nebulization soln (1 neb)] Route: Nebulizer; Critical Care Time: 05/08 00:18 Critical care time: Bedside Care: 120 minutes. Total time: 120 minutes cs11 Signatures: Dispatcher [employer] EDMS Chasidy Park RN RN jan Barnhardt, Gloria, Reg Reg gb Hema Cortez, Associate Justice Unit ml3 Any Caruso RN RN ld5 Rito Pierre DO DO cs11 Kristian Howell RN RN mb9 Sorenson, Kimberly, Reg Reg ks16 Lyubov Rodriguez Joseph 3 The chart was reviewed and I authenticate all verbal orders and agree with the evaluation and treatment provided.Attachments: 05/07 23:04 [facility] Payment Agreement [email or web address] 05/08 09:47 T-Sheet-- Draft Copy klr 14:13 ECG/EKG gb Chart Complete MTDD
--- NOTE | 2016-05-10 06:14 | EDDOCDS ---
Nurse's Notes [facility] Name: Amanda Rubin Age: 65 yrs Sex: Female : 1950 Arrival Date: 05/07/2016 Time: 21:19 Bed 18 Private MD: Any Koroma Diagnosis: Respiratory failure, unspecified with hypoxia Presentation: 05/07 21:31 Presenting complaint: Patient states: "I was diagnosed with the flu about a weak ago mb9 and I had pneumonia in February. About an hour ago I started having some shortness of breath". Adult Sepsis Screening: The patient does not have new or worsening altered mentation. Patient's respiratory rate is less than 22. Systolic blood pressure is greater than 100. Patient has a qSOFA score of 0- Negative Sepsis Screen. Suicide/Homicide risk assessment- the patient denies having any suicidal and/or homicidal ideations and does not present with any other emotional, behavioral or mental health complaints. 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 Transition of care: patient was not received from another setting of care. 21:31 Acuity: LAI Level 2 mb9 21:31 Method Of Arrival: Walkin/Carried/Asstd mb9 Triage Assessment: 21:31 General: Appears distressed, Behavior is cooperative. Pain: Denies pain. Pt Declines mb9 HIV testing. The patient is triaged at the bedside. See Assessment in Nurses Notes section of ED record. Neurological: Level of Consciousness is awake, alert, Oriented to person, place, time. Respiratory: Onset: The symptoms/episode began/occurred just prior to arrival, Airway is patent Respiratory effort is even, labored, Respiratory pattern is regular, symmetrical, Breath sounds are coarse bilaterally. Breath sounds are diminished bilaterally. Breath sounds with wheezes bilaterally. Historical: - Allergies: no known allergies; - Home Meds: 1. blood pressure med Unknown Unknown daily 2. "reflux medication". Unknown Unknown daily 3. Prozac 20 mg Oral cap 1 cap once daily 4. Eye Vitamin and Minerals 7,160-113-100 [id number] oral tab daily - PMHx: Hypertension; influenza; Pneumonia; Depression; GERD; - PSHx: none; - Social history: Smoking status: Patient states was never smoker of tobacco. No barriers to communication noted, The patient speaks fluent Swiss. - Family history: No immediate family members are acutely ill. - : The pt / caregiver states he / she is not on anticoagulants. Home medication list is obtained from the patient. - Exposure Risk Screening:: None identified. Screenin/15 03:09 Screening information is obtained from the patient. Fall risk: No risks identified. ld5 Assistance ADL's: requires no assistance with activities of daily living. Abuse/DV Screen: The patient / caregiver reports he/she is: not in a situation that causes fear, pain or injury. Nutritional screening: No deficits noted. Advance Directives: There is no Power of Artist Mannequin Coloring. home support is adequate. Assessment: 05/07 22:00 General: Appears uncomfortable, Behavior is cooperative. Pain: Location: head. ld5 Neurological: Level of Consciousness is awake, obeys commands. Cardiovascular: Rhythm is sinus tachycardia Chest pain is denied. Respiratory: Airway is patent Respiratory effort is even, labored, Breath sounds are coarse bilaterally. Breath sounds with wheezes bilaterally. Reports shortness of breath at rest on exertion cough that is productive. GI: Abdomen is non- distended Bowel sounds present X 4 quads. Abd is soft and non tender X 4 quads. Denies nausea, vomiting. Derm: Skin is intact, Skin is dry, Skin is pale. Musculoskeletal: Range of motion intact in all extremities. 22:20 General: Pt sitting up in bed. SO at bedside. No significant change in symptoms at this ld5 time. Will continue to monitor. 22:49 General: Pt up to commode. Tolerated well. Reports decrease in respiratory symptoms ld5 since arrival. Will continue to monitor. 23:30 General: Appears in no apparent distress, Pt resting in bed with eyes dimmed. No ld5 apparent distress. Reports decrease in symptoms since ER arrival. Will continue to monitor. 05/08 00:10 General: Appears in no apparent distress, Behavior is cooperative. Neurological: Level ld5 of Consciousness is awake, obeys commands. Respiratory: Airway is patent Respiratory effort is even, unlabored. 01:00 General: Hospitalist in to assess pt. ld5 01:45 General: Blankets provided and lights dimmed for comfort. Pt aware of plan for ld5 admission. Denies any needs at this time. Call bentley within reach. Will continue to monitor. 02:39 General: Appears in no apparent distress, Pt up to commode. Tolerated well. Returned to ld5 bed and call bentley within reach. Will continue to monitor. 03:29 General: Pt resting quietly in bed. Tamara claribel provided per request. Will continue to ld5 monitor. 04:35 General: Pt updated on room status. Denies any needs at this time. Will continue to ld5 monitor. 05:07 General: Appears in no apparent distress. Respiratory: Airway is patent Respiratory ld5 effort is even, unlabored. Vital Signs: 05/07 21:21 BP 174 / 102; Pulse 113; Resp 16 S; Pulse Ox 87% on R/A; Weight 90.72 kg (R); Height 5 gr2 ft. 8 in. (172.72 cm) (R); Pain 5/10; 21:30 BP 163 / 96 (auto/); mb9 21:30 Pulse Ox 84% on R/A; mb9 21:37 BP 155 / 90 (auto/); mb9 21:45 BP 130 / 78 (auto/); mb9 21:45 Pulse 108 MON; Pulse Ox 96% on 4 lpm NC; mb9 22:00 Pulse 115 MON; Pulse Ox 91% ; ld5 22:00 BP 133 / 80 (auto/); ld5 22:01 Temp 96.3; ld5 22:15 BP 140 / 79 (auto/); ld5 22:15 Pulse 120 MON; Pulse Ox 92% ; ld5 22:30 Pulse 119 MON; Pulse Ox 91% ; ld5 22:30 BP 136 / 76 (auto/); ld5 22:45 Pulse 118 MON; Pulse Ox 95% ; ld5 22:45 BP 124 / 80 (auto/); ld5 23:00 Pulse 116 MON; Pulse Ox 93% ; ld5 23:00 BP 129 / 61 (auto/); ld5 23:15 Pulse 111 MON; Pulse Ox 99% ; ld5 23:15 BP 115 / 57 (auto/); ld5 23:30 Pulse 120 MON; Pulse Ox 94% ; ld5 23:30 BP 116 / 59 (auto/); ld5 23:45 BP 115 / 57 (auto/); ld5 23:45 Pulse 121 MON; Pulse Ox 93% ; ld5 05/08 00:00 BP 105 / 53 (auto/); ld5 00:00 Pulse 120 MON; Pulse Ox 93% ; ld5 00:45 BP 103 / 63 (auto/); ld5 00:45 Pulse 112 MON; Pulse Ox 94% ; ld5 01:00 BP 97 / 55 (auto/); ld5 01:00 Pulse 109 MON; Pulse Ox 95% ; ld5 01:15 BP 110 / 56 (auto/); ld5 01:15 Pulse 109 MON; Pulse Ox 92% ; ld5 01:22 Temp 97.8; ld5 01:30 BP 115 / 60 (auto/); ld5 01:30 Pulse 108 MON; Pulse Ox 93% ; ld5 01:45 BP 108 / 55 (auto/); ld5 01:45 Pulse 105 MON; Pulse Ox 95% ; ld5 02:00 BP 92 / 57 (auto/); ld5 02:00 Pulse 106 MON; Pulse Ox 95% ; ld5 03:28 BP 114 / 59; Pulse 103; Resp 18; Temp 97.3; Pulse Ox 95% on 4 lpm NC; ld5 04:53 BP 112 / 56; Pulse 104; Resp 18; Temp 97.4; Pulse Ox 95% on 4 lpm NC; ld5 05/07 21:21 Body Mass Index 30.41 (90.72 kg, 172.72 cm) gr2 Vitals: 05/07 21:21 Log In Time: May 07, 2016 at 21:21. RN notified that patient meets Red Flag gr2 criteria. ED Course: 21:20 Patient visited by Neftali Ram. gr2 21:20 Any Koroma DO is Private Physician. gr2 21:20 Patient moved to Waiting gr2 21:23 Patient visited by Neftali Ram. gr2 21:28 Patient moved to 2 ml3 21:32 Rito Pierre DO is Attending Physician. cs11 21:32 Patient visited by Rito Pierre DO. cs11 21:32 Triage Initiated mb9 21:45 EKG done. (by ED staff). Reviewed by Rito Pierre DO. jmv 21:46 Pt greeted and oriented to ED. Patient advised of names of staff involved in care, jmv location of call bentley, wait times and NPO status. Accompanied by Significant Other, Patient has correct armband on for positive identification. Placed in gown. Bed in low position. Call light in reach. Side rails up X2. monitor and storage bin tender on. Pulse ox on. NIBP on. 21:47 Patient visited by Zia Hines PCA. jmv 21:51 Inserted saline lock: 18 gauge in right antecubital area and blood collected. The mb9 patient tolerated the procedure well. 22:01 Patient visited by Any Caruso RN. ld5 22:42 Patient visited by Umang Mora PCA. kb5 22:50 Patient visited by Any Caruso RN. ld5 23:04 [facility] Payment Agreement was scanned into [employer] and attached to record. ks16 23:20 Patient visited by Any Caruso RN. ld5 05/08 00:11 Patient visited by Any Caruso RN. ld5 00:16 Jimbo Pretty DO is Hospitalizing Provider. cs11 01:10 Patient visited by Umang Mora PCA. kb5 01:22 Patient visited by Any Caruso RN. ld5 01:46 Patient visited by Any Caruso RN. ld5 02:14 Patient moved to 18 ld5 02:53 Patient visited by Any Caruso RN. ld5 03:09 The patient / caregiver is instructed regarding the plan of care and ED course. ld5 03:09 No procedures done that require assistance. ld5 03:10 Patient visited by Any Caruso RN. ld5 03:31 Patient visited by Any Caruso RN. ld5 04:36 Patient visited by Any Caruso RN. ld5 04:54 Patient visited by Any Caruso RN. ld5 05:08 Patient visited by Any Caruso RN. ld5 09:47 T-Sheet-- Draft Copy was scanned into [employer] and attached to record. klr 14:13 ECG/EKG was scanned into [employer] and attached to record. gb Administered Medications: 05/07 21:35 Drug: Albuterol-Ipratropium 1 neb [ipratropium-albuterol 0.5 mg-3 mg(2.5 mg base)/3 mL jc3 nebulization soln (1 neb)] Route: Nebulizer; 21:42 Drug: Albuterol-Ipratropium 1 neb [ipratropium-albuterol 0.5 mg-3 mg(2.5 mg base)/3 mL jc3 nebulization soln (1 neb)] Route: Nebulizer; 21:52 Drug: Albuterol-Ipratropium 1 neb [ipratropium-albuterol 0.5 mg-3 mg(2.5 mg base)/3 mL jc3 nebulization soln (1 neb)] Route: Nebulizer; 22:00 Drug: Nitro-Bid 1 inches [Nitro-Bid 2 % transdermal ointment (1 inches)] Route: ld5 Transdermal; Site: anterior chest wall; 22:00 Drug: Furosemide 60 mg [furosemide 10 mg/mL injection solution (6 mL)] Route: IVP; ld5 Site: right antecubital; 22:00 Drug: Dexamethasone 12 mg [dexamethasone 4 mg/mL injection solution] Route: IV; Rate: ld5 bolus; Site: right antecubital; 22:55 Drug: Albuterol-Ipratropium 1 neb [ipratropium-albuterol 0.5 mg-3 mg(2.5 mg base)/3 mL jc3 nebulization soln (1 neb)] Route: Nebulizer; 23:04 Drug: Albuterol-Ipratropium 1 neb [ipratropium-albuterol 0.5 mg-3 mg(2.5 mg base)/3 mL jc3 nebulization soln (1 neb)] Route: Nebulizer; Output: 22:49 Urine: 550.00ml (Voided); Total: 550.00ml. ld5 05/08 02:40 Urine: 800.00ml (Voided); Total: 1350.00ml. ld5 RT: 05/07 21:37 Initial Med Neb Given as ordered. O2 via nasal cannula \\T\\ 2L/min. Respiratory: Breath jc3 sounds are coarse bilaterally. Breath sounds with crackles bilaterally. Breath sounds with wheezes bilaterally. at expiration. 21:38 O2 via Patient SpO2 on 2L - 88%. jc3 21:42 Subsequent Med Neb Given as ordered. jc3 21:52 Subsequent Med Neb Given as ordered. Respiratory: Breath sounds are coarse Breath jc3 sounds with crackles bilaterally. Breath sounds with wheezes bilaterally. at expiration. 23:04 Subsequent Med Neb Given as ordered. Respiratory: Breath sounds are coarse bilaterally. jc3 Breath sounds with wheezes bilaterally. at expiration. Order Results: Lab Order: CBC with Diff; SPEC'M 05/07/16 21:42 Test: WHITE BLOOD COUNT; Value: 11.5; Range: 4.0-10.0; Abnormal: Above high normal; Units: K/mm3; Status: F Test: RED BLOOD COUNT; Value: 4.87; Range: 4.00-5.40; Units: M/mm3; Status: F Test: HEMOGLOBIN; Value: 14.4; Range: 12.0-16.0; Units: g/dl; Status: F Test: HEMATOCRIT; Value: 44.7; Range: 36.0-47.0; Units: %; Status: F Test: MEAN CORPUSCULAR VOLUME; Value: 91.9; Range: 80.0-96.0; Units: fl; Status: F Test: MEAN CORPUSCULAR HEMOGLOBIN; Value: 29.6; Range: 27.0-33.0; Units: pg; Status: F Test: MEAN CORPUSCULAR HGB CONC; Value: 32.2; Range: 32.0-36.5; Units: g/dl; Status: F Test: RED CELL DISTRIBUTION WIDTH; Value: 13.3; Range: 11.5-14.5; Units: %; Status: F Test: PLATELET COUNT, AUTOMATED; Value: 252; Range: 150-450; Units: k/mm3; Status: F Test: NEUTROPHILS %; Value: 57.3; Range: 36.0-66.0; Units: %; Status: F Test: LYMPH %; Value: 21.8; Range: 24.0-44.0; Abnormal: Below low normal; Units: %; Status: F Test: MONO %; Value: 4.5; Range: 0.0-5.0; Units: %; Status: F Test: EOS %; Value: 14.3; Range: 0.0-3.0; Abnormal: Above high normal; Units: %; Status: F Test: BASO %; Value: 0.7; Range: 0.0-1.0; Units: %; Status: F Test: LARGE UNSTAINED CELL %; Value: 1.4; Range: 0.0-4.0; Units: %; Status: F Test: NEUTROPHILS #; Value: 6.6; Range: 1.8-7.7; Units: K/mm3; Status: F Test: LYMPH #; Value: 2.7; Range: 1.5-4.5; Units: K/mm3; Status: F Test: MONO #; Value: 0.5; Range: 0.0-0.8; Units: K/mm3; Status: F Test: EOS #; Value: 1.6; Range: 0.0-0.50; Abnormal: Above high normal; Units: K/mm3; Status: F Test: BASO #; Value: 0.1; Range: 0.0-0.2; Units: K/mm3; Status: F Test: LARGE UNSTAINED CELL #; Value: 0.2; Range: 0.0-0.4; Units: K/mm3; Status: F Lab Order: MED Profile; SPEC'M 05/07/16 21:41 Test: GLUCOSE, FASTING; Value: 116; Range: 80-110; Abnormal: Above high normal; Units: MG/DL; Status: F Test: BLOOD UREA NITROGEN; Value: 13; Range: 7-18; Units: MG/DL; Status: F Test: CREATININE FOR GFR; Value: 0.95; Range: 0.55-1.02; Units: MG/DL; Status: F Test: GLOMERULAR FILTRATION RATE; Value: > 60.0; Range: >45; Status: F Test: SODIUM LEVEL; Value: 143; Range: 136-145; Units: MEQ/L; Status: F Test: POTASSIUM SERUM; Value: 4.0; Range: 3.5-5.1; Units: MEQ/L; Status: F Test: CHLORIDE LEVEL; Value: 107; Range: 98-107; Units: MEQ/L; Status: F Test: CARBON DIOXIDE LEVEL; Value: 27; Range: 21-32; Units: MEQ/L; Status: F Test: ANION GAP; Value: 9; Range: 8-16; Units: MEQ/L; Status: F Test: CALCIUM LEVEL; Value: 9.3; Range: 8.8-10.2; Units: MG/DL; Status: F Test Note: ; Units are mL/min/1.73 m2 Chronic Kidney Disease Staging per NKF: Stage I & II GFR >=60 Normal to Mildly Decreased Stage III GFR 30-59 Moderately Decreased Stage IV GFR 15-29 Severely Decreased Stage V GFR <15 Very Little GFR Left ESRD GFR <15 on REGISTERED NURSE FETAL Lab Order: Lactic Acid (Christianson tube on ice); SPEC'M 05/07/16 21:42 Test: LACTIC ACID SEPSIS PROTOCOL; Value: 2.0; Range: 0.4-2.0; Units: MMOL/L; Status: F Lab Order: BNP; SPEC'M 05/07/16 21:42 Test: BRAIN NATRIURETIC PEPTIDE; Value: 12.4; Range: <100; Units: PG/ML; Status: F Lab Order: Cardiac Marker Panel; SPEC'M 05/07/16 21:41 Test: CPK CREATINE PHOSPHOKINASE; Value: 151; Range: 26-192; Units: U/L; Status: F Test: CK-MB VALUE MASS; Value: 2.2; Range: 0.0-3.6; Units: NG/ML; Status: F Test: MB/CK RELATIVE INDEX; Value: 1.45; Range: < OR =4; Status: F Test: TROPONIN I; Value: < 0.02; Range: < 0.10; Units: NG/ML; Status: F Test Note: ; DIAGNOSIS CRITERIA MMB ng/ml Relative Index (RI) NON-AMI < or = 5 N/A [place] ZONE > 5 < or = 4 AMI > 5 > 4 Outcome: 05/08 00:17 Decision to Hospitalize by Provider. cs11 03:09 No special radiology studies were completed. ld5 05:08 Discharge Assessment: Patient awake, alert and oriented x 3. No cognitive and/or ld5 functional deficits noted. Patient verbalized understanding of disposition instructions. patient administered narcotics - no. The following High Risk Discharge criteria are identified: None. Admitted to Pediatrics accompanied by tech, via stretcher, with oxygen, with chart. Condition: stable. Property :Personal belongings accompany Pt. 05:13 Patient left the ED. ld5 Signatures: Natacha De Luna, Reg Reg marian DiegoRicarda cuevasSonia, Broaching Machine Set Up Operator Unit ml3 Umang Mora, DAIRY MANUFACTURING TECHNOLOGIST DAIRY MANUFACTURING TECHNOLOGIST kb5 Destin Eli jc3 Any Caruso,ALFREDO RN ld5 Rito Pierre DO DO cs11 Neftali Ram gr2 Kristian Howell,RN RN mb9 Sherry George, Reg Reg ks16 Lyubov Rodriguez Jose, DAIRY MANUFACTURING TECHNOLOGIST DAIRY MANUFACTURING TECHNOLOGIST jmv Chart Complete MTDD
--- NOTE | 2016-05-10 06:14 | EDDOCDS ---
Physician Documentation [facility] Name: Amanda Rubin Age: 65 yrs Sex: Female : 1950 Arrival Date: 05/07/2016 Time: 21:19 Bed 18 Private MD: Any Koroma Disposition: 05/08 00:18 Critical Care:. cs11 Disposition: 05/08/16 00:17 Hospitalization ordered by Jimbo Pretty for Inpatient Admission. Preliminary diagnosis is Respiratory failure, unspecified with hypoxia. - Bed requested for M PED. - Status is Inpatient Admission. ld5 - Condition is Stable. - Problem is new. - Symptoms have improved. Historical: - Allergies: no known allergies; - Home Meds: 1. blood pressure med Unknown Unknown daily 2. "reflux medication". Unknown Unknown daily 3. Prozac 20 mg Oral cap 1 cap once daily 4. Eye Vitamin and Minerals 7,[id number] [id number] oral tab daily - PMHx: Hypertension; influenza; Pneumonia; Depression; GERD; - PSHx: none; - Social history: Smoking status: Patient states was never smoker of tobacco. No barriers to communication noted, The patient speaks fluent Azeri. - Family history: No immediate family members are acutely ill. - : The pt / caregiver states he / she is not on anticoagulants. Home medication list is obtained from the patient. - Exposure Risk Screening:: None identified. Vital Signs: 05/07 21:21 BP 174 / 102; Pulse 113; Resp 16 S; Pulse Ox 87% on R/A; Weight 90.72 kg / 200 lbs (R); gr2 Height 5 ft. 8 in. (172.72 cm) (R); Pain 5/10; 21:30 BP 163 / 96 (auto/); mb9 21:30 Pulse Ox 84% on R/A; mb9 21:37 BP 155 / 90 (auto/); mb9 21:45 BP 130 / 78 (auto/); mb9 21:45 Pulse 108 MON; Pulse Ox 96% on 4 lpm NC; mb9 22:00 Pulse 115 MON; Pulse Ox 91% ; ld5 22:00 BP 133 / 80 (auto/); ld5 22:01 Temp 96.3; ld5 22:15 BP 140 / 79 (auto/); ld5 22:15 Pulse 120 MON; Pulse Ox 92% ; ld5 22:30 Pulse 119 MON; Pulse Ox 91% ; ld5 22:30 BP 136 / 76 (auto/); ld5 22:45 Pulse 118 MON; Pulse Ox 95% ; ld5 22:45 BP 124 / 80 (auto/); ld5 23:00 Pulse 116 MON; Pulse Ox 93% ; ld5 23:00 BP 129 / 61 (auto/); ld5 23:15 Pulse 111 MON; Pulse Ox 99% ; ld5 23:15 BP 115 / 57 (auto/); ld5 23:30 Pulse 120 MON; Pulse Ox 94% ; ld5 23:30 BP 116 / 59 (auto/); ld5 23:45 BP 115 / 57 (auto/); ld5 23:45 Pulse 121 MON; Pulse Ox 93% ; ld5 02 00:00 BP 105 / 53 (auto/); ld5 00:00 Pulse 120 MON; Pulse Ox 93% ; ld5 00:45 BP 103 / 63 (auto/); ld5 00:45 Pulse 112 MON; Pulse Ox 94% ; ld5 01:00 BP 97 / 55 (auto/); ld5 01:00 Pulse 109 MON; Pulse Ox 95% ; ld5 01:15 BP 110 / 56 (auto/); ld5 01:15 Pulse 109 MON; Pulse Ox 92% ; ld5 01:22 Temp 97.8; ld5 01:30 BP 115 / 60 (auto/); ld5 01:30 Pulse 108 MON; Pulse Ox 93% ; ld5 01:45 BP 108 / 55 (auto/); ld5 01:45 Pulse 105 MON; Pulse Ox 95% ; ld5 02:00 BP 92 / 57 (auto/); ld5 02:00 Pulse 106 MON; Pulse Ox 95% ; ld5 03:28 BP 114 / 59; Pulse 103; Resp 18; Temp 97.3; Pulse Ox 95% on 4 lpm NC; ld5 04:53 BP 112 / 56; Pulse 104; Resp 18; Temp 97.4; Pulse Ox 95% on 4 lpm NC; ld5 05/07 21:21 Body Mass Index 30.41 (90.72 kg, 172.72 cm) gr2 MDM: 05/07 21:34 Chest, 1 View Ordered. EDMS 21:34 ECG WITH READING ER PHYS+CARDIAG ordered. EDMS 21:38 IV Saline Lock ordered. cs11 21:38 -Blood Culture (Adults Only), peripheral from different site, or from device/port/PICC cs11 etc. if present ordered. 21:38 Oxygen at 4L/Min NC or Home dosage ordered. cs11 21:38 Albuterol-Ipratropium 1 neb Nebulizer every 20 minutes x3 ordered. cs11 21:38 Call Respiratory ordered. cs11 21:39 CBC with Diff Ordered. EDMS 21:39 MED Profile Ordered. EDMS 21:39 Lactic Acid ([place] tube on ice) Ordered. EDMS 21:39 BNP Ordered. EDMS 21:39 Cardiac Marker Panel Ordered. EDMS 21:39 -Blood Culture Ordered. EDMS 21:40 -Blood Culture (Adults Only), peripheral from different site, or from device/port/PICC ml3 etc. if present complete. 21:40 Call Respiratory complete. ml3 21:40 BLOOD CULTURES Ordered. EDMS 21:47 Nitro-Bid Ointment 2 % 1 inches Transdermal once ordered. cs11 21:47 Furosemide 60 mg IVP once ordered. cs11 21:47 Dexamethasone 12 mg IV at bolus once ordered. cs11 22:27 CBC with Diff Reviewed. cs11 22:27 BNP Reviewed. cs11 22:32 MED Profile Reviewed. cs11 22:32 Lactic Acid ([place] tube on ice) Reviewed. cs11 22:32 Cardiac Marker Panel Reviewed. cs11 22:33 Albuterol-Ipratropium 1 neb Nebulizer every 20 minutes x3 ordered. cs11 22:50 Financial registration complete. [email or web address] 23:04 [facility] Payment Agreement was scanned into TimePad and attached to record. [email or web address] 05/08 00:19 BED REQUEST+ADM ordered. EDMS 01:10 Admission / Observation Status ordered. EDMS 01:50 2 GRAM SODIUM DIET ordered. EDMS 01:50 RESPIRATORY PANEL Ordered. EDMS 09:47 T-Sheet-- Draft Copy was scanned into TimePad and attached to record. klr 14:13 ECG/EKG was scanned into TimePad and attached to record. gb Administered Medications: 05/07 21:35 Drug: Albuterol-Ipratropium 1 neb [ipratropium-albuterol 0.5 mg-3 mg(2.5 mg base)/3 mL jc3 nebulization soln (1 neb)] Route: Nebulizer; 21:42 Drug: Albuterol-Ipratropium 1 neb [ipratropium-albuterol 0.5 mg-3 mg(2.5 mg base)/3 mL jc3 nebulization soln (1 neb)] Route: Nebulizer; 21:52 Drug: Albuterol-Ipratropium 1 neb [ipratropium-albuterol 0.5 mg-3 mg(2.5 mg base)/3 mL jc3 nebulization soln (1 neb)] Route: Nebulizer; 22:00 Drug: Nitro-Bid 1 inches [Nitro-Bid 2 % transdermal ointment (1 inches)] Route: ld5 Transdermal; Site: anterior chest wall; 22:00 Drug: Furosemide 60 mg [furosemide 10 mg/mL injection solution (6 mL)] Route: IVP; ld5 Site: right antecubital; 22:00 Drug: Dexamethasone 12 mg [dexamethasone 4 mg/mL injection solution] Route: IV; Rate: ld5 bolus; Site: right antecubital; 22:55 Drug: Albuterol-Ipratropium 1 neb [ipratropium-albuterol 0.5 mg-3 mg(2.5 mg base)/3 mL jc3 nebulization soln (1 neb)] Route: Nebulizer; 23:04 Drug: Albuterol-Ipratropium 1 neb [ipratropium-albuterol 0.5 mg-3 mg(2.5 mg base)/3 mL jc3 nebulization soln (1 neb)] Route: Nebulizer; Critical Care Time: 05/08 00:18 Critical care time: Bedside Care: 120 minutes. Total time: 120 minutes cs11 Signatures: Dispatcher [employer] EDMS Chasidy Park RN RN jan Barnhardt, Gloria, Reg Reg gb Hema Cortez, Health Services Director Unit ml3 Any Caruso RN RN ld5 Rito Pierre DO DO cs11 Kristian Howell RN RN mb9 Sorenson, Kimberly, Reg Reg ks16 Lyubov Rodriguez Joseph 3 The chart was reviewed and I authenticate all verbal orders and agree with the evaluation and treatment provided.Attachments: 05/07 23:04 [facility] Payment Agreement [email or web address] 05/08 09:47 T-Sheet-- Draft Copy klr 14:13 ECG/EKG gb Chart Complete MTDD
== END 2016-05-08 12:45 | disposition home or self-care (01) ==
LOC: M ED 21:19 → M ED INP 21:20 → UNDOADMOB 05-08 01:08 → M ED INP 05-08 01:08 → M PED 05-08 03:57 → UNDODISOB 05-08 12:45
PROVIDERS: ADMIT Hospitalist; ATTEND Internal Medicine
DX: J45.901 Unspecified asthma with (acute) exacerbation (principal); R06.00 Dyspnea, unspecified; E78.4 Other hyperlipidemia; K21.9 Gastro-esophageal reflux disease without esophagitis; I10 Essential (primary) hypertension; F41.9 Anxiety disorder, unspecified; J30.9 Allergic rhinitis, unspecified; Z79.899 Other long term (current) drug therapy
CPT/HCPCS: 36415; 71010; 80048; 82550; 82553; 83605; 83880; 84484; 85025; 87040; 87486; 87581; 87633; 87798; 93005; 94640; 96372; 96374; 96375; 96376; 99285; G0378; J1100; J1650; J1940; J1956; J2930

== ENCOUNTER → 2016-06-28 | Outpatient (REF) | payer MEDICARE, OTHER ==
[~2016-06-28] MED LIST: ACET50TAOT PO; ALBU17IN INH; ATOR40TA PO; FLUO20CA8 PO; FLUT1SPR2; ICAP1CAP PO; LEVO500T32 PO; NEXI40CA PO; PRED10TA PO; REST0.05 OU; TRAM50TA2 PO; TUSSSUS2 PO; VALS1TAB49 PO; VITMTA PO
== END ==
LOC: M LAB REF 17:22
PROVIDERS: ATTEND Ophthalmology
DX: H02.834 Dermatochalasis of left upper eyelid (principal); H02.831 Dermatochalasis of right upper eyelid

== ENCOUNTER 2017-10-28 21:06 | Emergency (ER) | payer MEDICARE, OTHER ==
[2017-10-29] MEDS: GABAPENTIN 100 MG CAP PO (00:21)
[2017-10-29] MEDS: NAPROXEN 250 MG TAB PO (00:22)
== END 2017-10-29 00:34 | disposition home or self-care (01) ==
LOC: M ED 10-29 00:34
DX: M25.562 Pain in left knee (principal); Z79.899 Other long term (current) drug therapy; Z91.040 Latex allergy status
CPT/HCPCS: 93971

== ENCOUNTER 2019-01-04 07:24 | Day surgery (SDC) | payer MEDICARE, OTHER ==
[~2019-01-04] VITALS: Ht 167.6 cm; Wt 92.5 kg
[~2019-01-04 07:24] MED LIST changes: +ACET500T15 PO; -ACET50TAOT PO; -ATOR40TA PO; +ATOR40TA75 PO; +FEXO180T58 PO; +FLUT11IN INH; +LEVO500T3 PO; -LEVO500T32 PO; +MONT10TA2 PO; +NAPR-837 PO; +NEUR100C PO; +NS 1,000 ML IV ONE; +OMEP-221 PO; -PRED10TA PO; +PRED10TA2 PO; +PROAAER10 INH; +SYST1SOL OU; +TUSS1SUS2 PO; -TUSSSUS2 PO
[2019-01-04] MEDS ORDERED: PROPOFOL 200 MG/20 ML VIAL As Ordered ONE (07:57)
[2019-01-04] MEDS ORDERED: LIDOCAINE 2% INJ 100 MG/5 ML SDV (FOR ANES.) As Ordered ONE (07:58)
[2019-01-04] MEDS ORDERED: fentaNYL 100 MCG/2 ML INJECTION (J3010) As Ordered ONE (08:24)
--- NOTE | 2019-01-04 09:02 | ROOR ---
Patient Name: Amanda Rubin Procedure Date: 01/04/2019 8:44 AM Date of : 1950 Age: 68 Room: [facility] Gender: Female Note Status: Finalized Procedure: Upper Endoscopy + Biopsies + Balloon Dilatation Indications: Dysphagia Providers: Marcus Kendall MD Referring MD: Any Koroma DO Requesting Provider: Medicines: Monitored Anesthesia Care Complications: No immediate complications. Procedure: Pre-Anesthesia Assessment: - The heart rate, respiratory rate, oxygen saturations, blood pressure, adequacy of pulmonary ventilation, and response to care were monitored throughout the procedure. The Endoscope was introduced through the mouth, and advanced to the second part of duodenum. The upper GI endoscopy was accomplished without difficulty. The patient tolerated the procedure well. Findings: The Z-line was regular and was found 35 cm from the incisors. A TTS dilator was passed through the scope. Dilation with an 18-19-20 mm balloon dilator was performed to 20 mm at the gastroesophageal junction. Non-severe esophagitis with no bleeding was found 35 cm from the incisors. Biopsies were taken with a cold forceps for histology. Mucosal changes including ringed esophagus were found in the lower third of the esophagus. Biopsies were taken with a cold forceps for histology. A large hiatal hernia was present. No other significant abnormalities were identified in a careful examination of the stomach. The exam of the duodenum was otherwise normal. Impression: - Z-line regular, 35 cm from the incisors. - Non-severe reflux esophagitis. Rule out Hoover's esophagus. Biopsied. - Esophageal mucosal changes suggestive of eosinophilic esophagitis. Biopsied. - Large hiatal hernia. - Dilation performed at the gastroesophageal junction. - The examination was otherwise normal. Recommendation: - Await pathology results. - Discharge patient to home. - Follow an antireflux regimen. - Continue present medications. - Await pathology results. - Telephone GI clinic for pathology results in 1 week. - Return to referring physician. - The findings and recommendations were discussed with the patient's family. Marcus Kendall MD Marcus Kendall MD 01/04/2019 9:02:11 AM Electronically signed by Marcus Kendall MD Number of Addenda: 0 Note Initiated On: 01/04/2019 8:44 AM Estimated Blood Loss: Estimated blood loss: none.
[2019-01-04 09:25] VITALS: BP 164/85
== END 2019-01-04 09:26 | disposition home or self-care (01) ==
LOC: M OPP 07:24
PROVIDERS: ATTEND Internal Medicine Gastroenterology
DX: K21.0 Gastro-esophageal reflux disease with esophagitis (principal); K22.8 Other specified diseases of esophagus; K44.9 Diaphragmatic hernia without obstruction or gangrene; R13.10 Dysphagia, unspecified; Z79.899 Other long term (current) drug therapy; Z91.040 Latex allergy status; Z91.048 Other nonmedicinal substance allergy status
CPT/HCPCS: 43239; 43249; 88305; J3010

== ENCOUNTER → 2021-01-19 | Outpatient (CLI) | payer MEDICARE, OTHER ==
[~2021-01-19] MED LIST changes: +FLUO20CA20 PO; -FLUO20CA8 PO; +MONT10TA10 PO; -MONT10TA2 PO; -NS 1,000 ML IV ONE; -VALS1TAB49 PO; +VALS40TA9 PO
--- NOTE | 2021-01-19 16:37 | REPMRS ---
Patient History Patient is postmenopausal. Family history of breast cancer in sister, breast cancer at age 85 in maternal aunt, breast cancer at age 85 in maternal aunt. No Hormone Replacement Therapy Patient states no breast complaints today. Patient has signed MRS History Sheet. Digital Woman Screen Mammo: January 19, 2021 - Exam #: [id number] Bilateral CC and MLO view(s) were taken. Technologist: Kerri Agarwal, Pool Player Prior study comparison: January 06, 2020, bilateral screening 3D/tomosynthesis, performed at [facility]. January 01, 2019, bilateral screening 3D/tomosynthesis, performed at [facility]. FINDINGS: There are scattered fibroglandular densities. Screening. Digital screening (2D) mammography was performed bilaterally in the CC and MLO projections. Additionally, breast tomosynthesis (3D mammography) was performed bilaterally in the CC and MLO projections. Todays exam was compared to the prior exam/exams. By history, the patient has no complaints of a palpable breast abnormality or other significant breast complaints. The Volpara volumetric breast density category is B, there are scattered areas of fibroglandular densities. The breasts are unchanged in size and shape. There are no sary-soft tissue densities or spiculated masses. There is no internal architectural distortion. There are no suspicious sary-calcific clusters. Skin thickening or nipple retraction is not present. IMPRESSION: BI-RADS Category 2- Benign Findings. There is no evidence of malignant alteration of the breasts. Followup examination recommended in one year. The lifetime Tyrer-Cuzick score is 10.6% This mammogram was read with the assistance of Jasmin Maestrano,an FDA approved computer aided detection system for mammography. Negative x-ray reports should not delay surgical consultation if a dominant or clinically suspicious mass is present. Not all breast cancers can be identified by mammography. Therefore, we recommend that you continue to perform regular breast self-examination and physical examination and then promptly contact your physician of any concerns or changes. Adenosis and dense breasts may obscure an underlying neoplasm. No significant changes when compared with prior studies. Assessment: BI-RADS/ACR category 2 mammogram. Benign Findings. Recommendation Routine screening mammogram of both breasts in 1 year. Electronically Signed By: Leonardo Johnson MD 01/19/21 [id number]
== END ==
LOC: M WHC 12:41
PROVIDERS: ATTEND Internal Medicine
DX: Z12.31 Encounter for screening mammogram for malignant neoplasm of breast (principal)

== ENCOUNTER → 2022-02-07 | Outpatient (CLI) | payer MEDICARE, OTHER ==
[~2022-02-07] MED LIST changes: +FEXO-117 PO; -FEXO180T58 PO; +FLUO-96 PO; -FLUO20CA20 PO; +LEVO1TAB39 PO; -LEVO500T3 PO; -MONT10TA10 PO; +MONT10TA97 PO; -OMEP-221 PO; +OMEP40CA5 PO
== END ==
LOC: M WHC 09:57
PROVIDERS: ATTEND Internal Medicine
DX: Z12.31 Encounter for screening mammogram for malignant neoplasm of breast (principal); Z13.820 Encounter for screening for osteoporosis; M85.851 Other specified disorders of bone density and structure, right thigh; M85.852 Other specified disorders of bone density and structure, left thigh

== ENCOUNTER 2022-11-04 11:49 | Day surgery (SDC) | payer MEDICARE, OTHER ==
[~2022-11-04] VITALS: Ht 167.6 cm; Wt 88.0 kg
[~2022-11-04 11:49] MED LIST changes: -FLUT11IN INH; +FLUT12AE6 INH; +NS 1,000 ML IV ONE; +PROA1AER2 INH; +PROZ20CA11 PO
[2022-11-04] MEDS ORDERED: fentaNYL 100 MCG/2 ML INJECTION As Ordered ONE (15:09)
[2022-11-04] MEDS ORDERED: propofoL 200 MG/20 ML VIAL As Ordered ONE ×2 (15:09→15:14)
[2022-11-04] MEDS ORDERED: LIDOCAINE 2% 100MG/5ML SDV (FOR ANES.) As Ordered ONE (15:13)
[2022-11-04 15:28] VITALS: TEMP 97.3
[2022-11-04 15:45] VITALS: BP 148/82; O2SAT 99
== END 2022-11-04 15:55 | disposition home or self-care (01) ==
LOC: M OPP 11:49
PROVIDERS: ATTEND Internal Medicine Gastroenterology
DX: K22.89 Other specified disease of esophagus (principal); R13.14 Dysphagia, pharyngoesophageal phase; Z79.02 Long term (current) use of antithrombotics/antiplatelets; Z79.1 Long term (current) use of non-steroidal anti-inflammatories (NSAID); Z79.51 Long term (current) use of inhaled steroids; Z79.52 Long term (current) use of systemic steroids; Z79.899 Other long term (current) drug therapy; Z91.040 Latex allergy status; Z91.048 Other nonmedicinal substance allergy status
CPT/HCPCS: 43249; 88305; J3010

== ENCOUNTER → 2023-02-11 | Outpatient (CLI) | payer MEDICARE, OTHER ==
[~2023-02-11] MED LIST changes: -NS 1,000 ML IV ONE
== END ==
LOC: M WHC 08:12
PROVIDERS: ATTEND Internal Medicine
DX: Z12.31 Encounter for screening mammogram for malignant neoplasm of breast (principal)

== ENCOUNTER → 2024-02-17 | Outpatient (CLI) | payer MEDICARE, OTHER | LOC: M WHC 08:19 | PROVIDERS: ATTEND Internal Medicine | DX: Z12.31 Encounter for screening mammogram for malignant neoplasm of breast (principal); R92.313 Mammographic fatty tissue density, bilateral breasts ==

== ENCOUNTER → 2025-02-21 | Outpatient (CLI) | payer MEDICARE, OTHER ==
[~2025-02-21] MED LIST changes: -FEXO-117 PO; +FEXO-193 PO; -PROZ20CA11 PO; +PROZ20CA25 PO
== END ==
LOC: M WHC 09:24
PROVIDERS: ATTEND Internal Medicine
DX: Z12.31 Encounter for screening mammogram for malignant neoplasm of breast (principal); R92.313 Mammographic fatty tissue density, bilateral breasts